=== PATIENT | male | born 1955 | race Caucasian/White ===

== ENCOUNTER 2017-08-22 00:34 | Emergency (ER) | payer BC ==
[2017-08-22] MEDS: HYDROCODONE/APAP (10/325) TAB PO (04:26)
[2017-08-22] MEDS: KETOROLAC 30 MG INJ IM (04:26)
== END 2017-08-22 05:21 | disposition home or self-care (01) ==
LOC: FTE 05:21
DX: M54.41 Lumbago with sciatica, right side (principal); F17.210 Nicotine dependence, cigarettes, uncomplicated
CPT/HCPCS: 96372; 99284-25; J1885